=== PATIENT | female | born 2000 | race Hispanic/Latino ===

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

== ENCOUNTER 2021-07-21 02:27 | Observation (INO) | payer BC, OTHER ==
[2021-07-21 03:07] LABS: #Lymphocytes 1.5 thou/uL (1.20-3.40); #Monocytes 0.5 thou/uL (0.11-0.59); #Neutrophils 13.4 thou/uL (1.40-6.50); %Basophils 0.1 % (0.0-1.0); %Eosinophils 0.1 % (0.0-10.0); %Lymphocytes 9.7 % (21.0-51.0); %Monocytes 3.3 % (0.0-10.0); %Neutrophils 86.8 % (42.0-75.0); Hemoglobin 16.6 g/dL (12.0-16.0); Mean Corpuscular HGB CONC 33.9 g/dL (32.0-36.0); Mean Corpuscular Hemoglobin 30.8 pg (27.0-31.0); Mean Corpuscular Volume 91.1 fL (78.0-98.0); Mean Platelet Volume 9.4 fL (7.4-10.4); Platelet Count 311 thou/uL (130-400); RBC Distribution Width 12.4 % (11.5-14.5); Red Blood Cell (RBC) Count 5.39 mill/uL (4.20-5.40); White Blood Cell (WBC) Count 15.4 thou/uL (4.8-10.8)
[2021-07-21 03:22] LABS: ALT (SGPT) 325 U/L (8-55); AST (SGOT) 153 U/L (5-34); Albumin 4.4 g/dL (3.5-5.0); Alkaline Phosphatase 176 U/L (40-110); Anion Gap 20 mmol/L (10-20); BUN (Urea Nitrogen) 10 mg/dL (7.0-18.7); Bilirubin, Total 2.6 mg/dL (0.2-1.2); Calc. Creatinine Clearance 0 mL/min (70-130); Calcium 9.8 mg/dL (7.8-10.44); Carbon Dioxide 21 mmol/L (22-29); Chloride 100 mmol/L (98-107); Globulin 3.3 g/dL (2.4-3.5); Glucose 165 mg/dL (70-105); Potassium 4.2 mmol/L (3.5-5.1); Protein, Total 7.7 g/dL (6.0-8.3); Sodium 137 mmol/L (136-145)
[2021-07-21] MEDS ORDERED: Ondansetron ODT 4 MG TAB ONE (03:22)
[2021-07-21 03:36] LABS: Lipase 7904 U/L (8-78)
[2021-07-21] MEDS ORDERED: Piperacillin/Tazobactam 3.375 GM VIAL ONE (03:40)
[2021-07-21] MEDS ORDERED: Morphine 4 MG/ML VIAL ONE (03:40)
[2021-07-21] MEDS ORDERED: Ondansetron PF 4 MG/2 ML Vial ONE ×3 (03:40→10:53)
[2021-07-21] MEDS ORDERED: Ketorolac Tromethamine 30 MG/ML VIAL IVP PRN (05:54)
[2021-07-21] MEDS ORDERED: Morphine 4 MG/ML VIAL SLOW IVP PRN (05:54)
[2021-07-21] MEDS ORDERED: Ondansetron PF 4 MG/2 ML Vial IVP PRN (05:55)
[2021-07-21] MEDS ORDERED: Sodium Chloride 0.9% 1,000 ML IV SCH ×2 (06:00→07:25)
[2021-07-21] MEDS ORDERED: Scopolamine 1.5 mg/72 hour Patch TOP SCH (06:00)
[2021-07-21 07:38] LABS: SARS-CoV-2 NAA Rapid Test Not Detected (NotDetected)
[2021-07-21 09:59] LABS: BHCG - Serum Negative (NEGATIVE); Pregs Control Background? CLEAR/WHITE (CLR/WHITE); Pregs Control Bar Appear? YES (CONTROL BAR)
[2021-07-21] MEDS ORDERED: Piperacillin/Tazobactam 3.375 GM in Sodium Chloride 0.9% 100 ML IVPB SCH (10:00)
[2021-07-21] MEDS ORDERED: Iothalamate Meglumine 60% 50 ML VIAL FS ONE (10:23)
[2021-07-21] MEDS ORDERED: Bupivacaine PF 0.5% 30 ML VIAL ONE (10:23)
[2021-07-21] MEDS ORDERED: EPINEPHrine 1 MG/ML AMP ONE (10:23)
[2021-07-21] MEDS ORDERED: Sodium Chloride 0.9% 20 ML ONE (10:34)
[2021-07-21] MEDS ORDERED: Fentanyl 100 MCG/2 ML VIAL ONE ×2 (10:48→11:40)
[2021-07-21] MEDS ORDERED: Lidocaine 1% PF 5 ML VIAL ONE (10:53)
[2021-07-21] MEDS ORDERED: Ketorolac Tromethamine 30 MG/ML VIAL ONE (10:53)
[2021-07-21] MEDS ORDERED: Rocuronium Bromide 10 MG/ML (10ML VIAL) ONE (10:53)
[2021-07-21] MEDS ORDERED: Glycopyrrolate 0.2 MG/ML 5 ML SYRINGE ONE (10:53)
[2021-07-21] MEDS ORDERED: Metoclopramide HCl 10 MG/2 ML VIAL ONE (10:53)
[2021-07-21] MEDS ORDERED: PROPOFOL 200 MG/20 ML VIAL ONE (10:53)
[2021-07-21] MEDS ORDERED: Succinylcholine 200 MG/10 ml SYRINGE FS ONE (10:53)
[2021-07-21] MEDS ORDERED: Ibuprofen 600 MG TAB PO PRN (11:56)
[2021-07-21] MEDS ORDERED: Acetaminophen 500 MG TAB PO PRN (11:56)
[2021-07-21] MEDS ORDERED: traMADol HCl 50 MG TAB PO PRN (11:56)
[2021-07-21] MEDS ORDERED: Non-Formulary Medication 1 EACH PO PRN (12:06)
[2021-07-21] MEDS ORDERED: Promethazine HCl 25 MG/ML VIAL IM/IV PRN (12:15)
[2021-07-21] MEDS ORDERED: Ondansetron HCl/PF 4 MG/2 ML Vial IVP PRN (12:15)
[2021-07-21] MEDS ORDERED: Lactated Ringer's 500 ML IV SCH (21:00)
[2021-07-21] MEDS: Lactated Ringer's 1,000 ML IV SCH (21:57)
[2021-07-22] MEDS: Lactated Ringer's 1,000 ML IV SCH (01:55)
[2021-07-22 06:17] VITALS: BMI 41.0
[2021-07-22 07:08] LABS: #Monocytes 0.9 thou/uL (0.11-0.59); #Neutrophils 8.5 thou/uL (1.40-6.50); %Basophils 0.2 % (0.0-1.0); %Eosinophils 0.1 % (0.0-10.0); %Lymphocytes 17.4 % (21.0-51.0); %Monocytes 7.9 % (0.0-10.0); %Neutrophils 74.4 % (42.0-75.0); Hemoglobin 10.3 g/dL (12.0-16.0); Mean Corpuscular Volume 91.1 fL (78.0-98.0); Mean Platelet Volume 9.3 fL (7.4-10.4); Platelet Count 230 thou/uL (130-400); RBC Distribution Width 12.2 % (11.5-14.5); Red Blood Cell (RBC) Count 3.32 mill/uL (4.20-5.40); White Blood Cell (WBC) Count 11.5 thou/uL (4.8-10.8)
[2021-07-22 07:46] LABS: Lipase 1464 U/L (8-78)
[2021-07-22 07:50] LABS: ALT (SGPT) 152 U/L (8-55); AST (SGOT) 57 U/L (5-34); Albumin 3.1 g/dL (3.5-5.0); Alkaline Phosphatase 88 U/L (40-110); Anion Gap 12 mmol/L (10-20); BUN (Urea Nitrogen) 6 mg/dL (7.0-18.7); Bilirubin, Total 0.9 mg/dL (0.2-1.2); Calc. Creatinine Clearance 206 mL/min (70-130); Calcium 7.6 mg/dL (7.8-10.44); Carbon Dioxide 25 mmol/L (22-29); Chloride 102 mmol/L (98-107); Glucose 113 mg/dL (70-105); Potassium 3.6 mmol/L (3.5-5.1); Protein, Total 5.1 g/dL (6.0-8.3); Sodium 135 mmol/L (136-145)
[2021-07-22] MEDS ORDERED: Sodium Chloride 0.9% 1,000 ML IV SCH (09:30)
[2021-07-22 16:10] VITALS: BP 110/58; TEMP 99.1
== END 2021-07-22 17:30 | disposition home or self-care (01) ==
LOC: ERS 02:27 → INTOOBSV 03:43 → ONC 03:43
PROVIDERS: ADMIT Specialist; ATTEND Specialist
PROC: 0FT44ZZ Resection of Gallbladder, Percutaneous Endoscopic Approach (ICD-10-PCS; principal; 2021-07-21)
PROC: BF101ZZ Fluoroscopy of Bile Ducts using Low Osmolar Contrast (ICD-10-PCS; 2021-07-21)
DX: K80.10 Calculus of gallbladder with chronic cholecystitis without obstruction (principal); K85.10 Biliary acute pancreatitis without necrosis or infection; K83.8 Other specified diseases of biliary tract; Z20.822 Contact with and (suspected) exposure to COVID-19
CPT/HCPCS: 36415; 47532; 76705; 80053; 83690; 84703; 85025; 88304; 96376; G0378; J0171; J1610; J1885; J2270; J2405; J2543; J2704; J2765; J3010; J7050; J7120; Q0162; Q9961; S0020; U0002

== ENCOUNTER 2023-12-18 | Inpatient (IN) | payer BC | END 2023-12-23 16:37 | disposition home or self-care (01) | DRG 853 | PROVIDERS: ADMIT Specialist | PROC: 0D1B0Z4 Bypass Ileum to Cutaneous, Open Approach (ICD-10-PCS; principal; 2023-12-18) | PROC: 0W9G0ZZ Drainage of Peritoneal Cavity, Open Approach (ICD-10-PCS; 2023-12-18) | PROC: 0DTN0ZZ Resection of Sigmoid Colon, Open Approach (ICD-10-PCS; 2023-12-18) | PROC: 0DJD4ZZ Inspection of Lower Intestinal Tract, Percutaneous Endoscopic Approach (ICD-10-PCS; 2023-12-18) | PROC: 02H633Z Insertion of Infusion Device into Right Atrium, Percutaneous Approach (ICD-10-PCS; 2023-12-18) | PROC: B5181ZA Fluoroscopy of Superior Vena Cava using Low Osmolar Contrast, Guidance (ICD-10-PCS; 2023-12-18) | PROC: 0D9670Z Drainage of Stomach with Drainage Device, Via Natural or Artificial Opening (ICD-10-PCS; 2023-12-18) | PROC: 3E0G76Z Introduction of Nutritional Substance into Upper GI, Via Natural or Artificial Opening (ICD-10-PCS; 2023-12-18) | PROC: 0T9B70Z Drainage of Bladder with Drainage Device, Via Natural or Artificial Opening (ICD-10-PCS; 2023-12-18) | PROC: 3E033XZ Introduction of Vasopressor into Peripheral Vein, Percutaneous Approach (ICD-10-PCS; 2023-12-18) | PROC: 30233J1 Transfusion of Nonautologous Serum Albumin into Peripheral Vein, Percutaneous Approach (ICD-10-PCS; 2023-12-18) | PROC: 3E03329 Introduction of Other Anti-infective into Peripheral Vein, Percutaneous Approach (ICD-10-PCS; 2023-12-18) | DX: A41.50 Gram-negative sepsis, unspecified (principal); K65.1 Peritoneal abscess; K57.20 Diverticulitis of large intestine with perforation and abscess without bleeding; D62 Acute posthemorrhagic anemia; K52.9 Noninfective gastroenteritis and colitis, unspecified; Z90.49 Acquired absence of other specified parts of digestive tract; K66.8 Other specified disorders of peritoneum; E66.01 Morbid (severe) obesity due to excess calories; Z68.38 Body mass index [BMI] 38.0-38.9, adult; Z53.31 Laparoscopic surgical procedure converted to open procedure; E86.0 Dehydration ==

== ENCOUNTER 2024-02-15 08:31 | Outpatient (CLI) | payer BC ==
[2024-02-15] MEDS ORDERED: MD-Gastroview 120 ML BOT ONE (08:46)
== END 2024-02-15 08:32 | disposition home or self-care (01) ==
LOC: RAD 08:31
PROVIDERS: ATTEND Specialist
DX: Z48.815 Encounter for surgical aftercare following surgery on the digestive system (principal); Z93.3 Colostomy status
CPT/HCPCS: 74280; Q9963

== ENCOUNTER 2024-02-28 09:00 | Inpatient (IN) | payer BC ==
[2024-03-02] MEDS ORDERED: Ketorolac Tromethamine 30 MG (1 mL) VIAL ONE (10:32)
[2024-03-02] MEDS ORDERED: Rocuronium Bromide 10 MG/ML (10ML VIAL) ONE (11:09)
[2024-03-02] MEDS ORDERED: fentaNYL PF 100 MCG/2 ML SYRINGE ONE (11:11)
[2024-03-02] MEDS ORDERED: Midazolam HCl 2 mg/2 ml Vial ONE ×2 (11:11→11:29)
[2024-03-02] MEDS ORDERED: Dexmedetomidine 200 MCG/2 ML VIAL ONE (11:27)
[2024-03-02] MEDS ORDERED: fentaNYL 50 mcg/mL 1 mL Vial ONE ×2 (11:28→13:45)
[2024-03-02] MEDS ORDERED: Bupivacaine 0.25% HCL 30 ML VIAL ONE (11:29)
[2024-03-02] MEDS ORDERED: Lidocaine 2% 6 ML (Jelly) SYR ONE (12:00)
[2024-03-02] MEDS ORDERED: cefOXitin 2 GM VIAL ONE (12:04)
[2024-03-02] MEDS ORDERED: Sodium Chloride 0.9% 100 ML ONE (12:05)
[2024-03-02] MEDS ORDERED: PROPOFOL 200 MG/20 ML VIAL ONE (12:17)
[2024-03-02] MEDS ORDERED: Bupivacaine/Epinephrine 0.25% 30 ML VIAL ONE (12:17)
[2024-03-02] MEDS ORDERED: PHENYLEPHRINE-NS 100 MCG/ML 10 ML SYRINGE ONE (12:21)
[2024-03-02] MEDS ORDERED: Ondansetron PF 4 MG/2 ML Vial ONE (12:27)
[2024-03-02] MEDS ORDERED: Metoclopramide HCl 10 MG (2 mL) VIAL ONE (12:27)
[2024-03-02] MEDS ORDERED: Bacitracin Zinc Ointment 30 gm TUBE ONE (13:15)
[2024-03-02] MEDS ORDERED: SUGAMMADEX SODIUM 200 MG/2 ML VIAL ONE (13:20)
[2024-03-02] MEDS ORDERED: Ondansetron HCl/PF 4 MG/2 ML Vial IVP PRN (13:38)
[2024-03-02] MEDS ORDERED: HYDROmorphone 2 MG/ML VIAL SLOW IVP PRN (13:38)
[2024-03-02] MEDS ORDERED: Promethazine HCl 25 MG/ML VIAL IM PRN (13:38)
[2024-03-02] MEDS ORDERED: Ondansetron ODT 4 MG TAB PO PRN (14:33)
[2024-03-02] MEDS ORDERED: Morphine 2 MG/ML VIAL SLOW IVP PRN (14:33)
[2024-03-02] MEDS: Ketorolac Tromethamine 30 MG (1 mL) VIAL IVP SCH (19:37)
[2024-03-02] MEDS: D5 LR w/20 mEq KCL 1,000 ML IV SCH (19:54)
[2024-03-02] MEDS: Enoxaparin 40 MG (0.4 mL) SYRINGE SC SCH (20:55)
[2024-03-02] MEDS: Escitalopram Oxalate 10 mg Tablet PO SCH (20:55)
[2024-03-03 06:02] LABS: #Basophils Less than 0.03 10x3/uL (0.0-0.2); %Basophils 0.2 % (0.0-1.0); %Eosinophils 2.6 % (0.0-10.0); %Lymphocytes 13.7 % (21.0-51.0); %Monocytes 7.4 % (0.0-10.0); %Neutrophils 75.9 % (42.0-75.0); Hemoglobin 9.3 g/dL (12.0-16.0); Mean Corpuscular HGB CONC 33.2 g/dL (32.0-36.0); Mean Corpuscular Hemoglobin 29.5 pg (27.0-31.0); Mean Corpuscular Volume 88.9 fL (78.0-98.0); Mean Platelet Volume 11.4 fL (7.4-10.4); Platelet Count 220 10x3/uL (130-400); RBC Distribution Width 14.4 % (11.5-14.5); Red Blood Cell (RBC) Count 3.15 mill/uL (4.20-5.40)
[2024-03-03 06:16] LABS: Anion Gap 11 mmol/L (10-20); BUN (Urea Nitrogen) 30 mg/dL (7.0-18.7); Calc. Creatinine Clearance 68 mL/min (70-130); Calcium 8.5 mg/dL (7.8-10.44); Carbon Dioxide 25 mmol/L (22-29); Chloride 107 mmol/L (98-107); Estimated GFR 48; Glucose 116 mg/dL (70-105); Potassium 3.5 mmol/L (3.5-5.1); Sodium 139 mmol/L (136-145)
[2024-03-03] MEDS: Levothyroxine 150 MCG TAB PO SCH (06:43)
[2024-03-03] MEDS: Lactated Ringer's 1,000 ML IV SCH (07:53)
[2024-03-03] MEDS: Acetaminophen 500 MG TAB PO PRN (08:03)
[2024-03-03] MEDS: traMADol HCl 50 MG TAB PO PRN ×2 (08:03→17:32)
[2024-03-03 10:21] VITALS: BMI 32.1
[2024-03-03] MEDS: D5 LR w/20 mEq KCL 1,000 ML IV SCH (11:00)
[2024-03-03 12:27] LABS: #Basophils 0.03 10x3/uL (0.0-0.2); %Basophils 0.4 % (0.0-1.0); %Eosinophils 3.1 % (0.0-10.0); %Lymphocytes 18.4 % (21.0-51.0); %Monocytes 7.1 % (0.0-10.0); %Neutrophils 70.6 % (42.0-75.0); Hematocrit 25.7 % (36.0-47.0); Hemoglobin 8.4 g/dL (12.0-16.0); Mean Corpuscular HGB CONC 32.7 g/dL (32.0-36.0); Mean Corpuscular Hemoglobin 29.2 pg (27.0-31.0); Mean Corpuscular Volume 89.2 fL (78.0-98.0); Mean Platelet Volume 11.7 fL (7.4-10.4); Platelet Count 202 10x3/uL (130-400); RBC Distribution Width 14.5 % (11.5-14.5); Red Blood Cell (RBC) Count 2.88 mill/uL (4.20-5.40)
[2024-03-03 12:59] VITALS: BMI 32.1
[2024-03-04 06:00] LABS: #Basophils Less than 0.03 10x3/uL (0.0-0.2); %Basophils 0.2 % (0.0-1.0); %Eosinophils 3.7 % (0.0-10.0); %Lymphocytes 12.4 % (21.0-51.0); %Monocytes 6.6 % (0.0-10.0); %Neutrophils 76.8 % (42.0-75.0); Hematocrit 25.3 % (36.0-47.0); Hemoglobin 8.2 g/dL (12.0-16.0); Mean Corpuscular HGB CONC 32.4 g/dL (32.0-36.0); Mean Corpuscular Hemoglobin 29.4 pg (27.0-31.0); Mean Corpuscular Volume 90.7 fL (78.0-98.0); Mean Platelet Volume 11.6 fL (7.4-10.4); Platelet Count 179 10x3/uL (130-400); RBC Distribution Width 14.6 % (11.5-14.5); Red Blood Cell (RBC) Count 2.79 mill/uL (4.20-5.40)
[2024-03-04 06:25] LABS: Anion Gap 11 mmol/L (10-20); BUN (Urea Nitrogen) 16 mg/dL (7.0-18.7); Calc. Creatinine Clearance 117 mL/min (70-130); Calcium 8.1 mg/dL (7.8-10.44); Carbon Dioxide 23 mmol/L (22-29); Chloride 107 mmol/L (98-107); Estimated GFR 92; Glucose 127 mg/dL (70-105); Potassium 3.6 mmol/L (3.5-5.1); Sodium 137 mmol/L (136-145)
[2024-03-04] MEDS: Ondansetron PF 4 MG/2 ML Vial IVP PRN (09:45)
[2024-03-04] MEDS: Morphine 4 MG/ML VIAL SLOW IVP PRN (14:29)
[2024-03-05 09:21] LABS: #Basophils Less than 0.03 10x3/uL (0.0-0.2); %Basophils 0.3 % (0.0-1.0); %Eosinophils 2.9 % (0.0-10.0); %Lymphocytes 14.9 % (21.0-51.0); %Monocytes 5.4 % (0.0-10.0); %Neutrophils 76.1 % (42.0-75.0); Hematocrit 24.9 % (36.0-47.0); Mean Corpuscular HGB CONC 32.1 g/dL (32.0-36.0); Mean Corpuscular Hemoglobin 29.1 pg (27.0-31.0); Mean Corpuscular Volume 90.5 fL (78.0-98.0); Mean Platelet Volume 11.1 fL (7.4-10.4); Platelet Count 188 10x3/uL (130-400); RBC Distribution Width 14.6 % (11.5-14.5); Red Blood Cell (RBC) Count 2.75 mill/uL (4.20-5.40)
[2024-03-05 09:37] LABS: Anion Gap 11 mmol/L (10-20); BUN (Urea Nitrogen) 11 mg/dL (7.0-18.7); Calc. Creatinine Clearance 134 mL/min (70-130); Calcium 8.4 mg/dL (7.8-10.44); Carbon Dioxide 24 mmol/L (22-29); Chloride 107 mmol/L (98-107); Estimated GFR 107; Glucose 96 mg/dL (70-105); Potassium 3.3 mmol/L (3.5-5.1); Sodium 139 mmol/L (136-145)
[2024-03-05] MEDS ORDERED: Sodium Chloride 0.9% 1,000 ML IV SCH (10:30)
[2024-03-05] MEDS: Lactated Ringer's 1,000 ML IV SCH (12:55)
[2024-03-05] MEDS ORDERED: Midazolam HCl 2 mg/2 ml Vial ONE ×2 (13:18→13:48)
[2024-03-05] MEDS ORDERED: Piperacillin/Tazobactam 3.375 GM VIAL ONE (13:19)
[2024-03-05] MEDS ORDERED: Sodium Chloride 0.9% 100 ML ONE (13:19)
[2024-03-05] MEDS ORDERED: EPINEPHrine 1 MG/ML VIAL ONE (13:44)
[2024-03-05] MEDS ORDERED: Bupivacaine PF 0.5% 30 ML VIAL ONE (13:44)
[2024-03-05] MEDS ORDERED: fentaNYL PF 100 MCG/2 ML SYRINGE ONE (13:46)
[2024-03-05] MEDS ORDERED: PROPOFOL 20 ML ONE (13:47)
[2024-03-05] MEDS ORDERED: SUCCINYLCHOLINE/SOD CL,ISO/PF 200 MG/10 ML SYRINGE FS ONE (13:52)
[2024-03-05] MEDS ORDERED: Rocuronium Bromide 50 MG/5 ML VIAL ONE (13:52)
[2024-03-05] MEDS ORDERED: Dexamethasone 20 MG/5 ML VIAL ONE (14:29)
[2024-03-05] MEDS ORDERED: NEOSTIGMINE 3 MG/3 ML SYR 3 MG/3 ML SYRINGE ONE (14:52)
[2024-03-05] MEDS ORDERED: Glycopyrrolate 0.2 MG/ML 5 ML SYRINGE ONE (14:52)
[2024-03-05] MEDS ORDERED: Bacitracin Zinc Ointment 30 gm TUBE ONE (14:54)
[2024-03-05] MEDS ORDERED: Meperidine HCl/PF 25 MG (1 mL) VIAL ONE (15:12)
[2024-03-05] MEDS: Piperacillin/Tazobactam 3.375 GM in Sodium Chloride 0.9% 100 ML IVPB SCH (15:19)
[2024-03-05] MEDS ORDERED: fentaNYL 50 mcg/mL 1 mL Vial ONE (15:32)
[2024-03-05] MEDS: Potassium Chloride 20 MEQ in Lactated Ringer's 1,000 ML IV SCH (16:04)
[2024-03-05] MEDS: Ketorolac Tromethamine 30 MG (1 mL) VIAL IVP SCH (19:20)
[2024-03-06 07:00] LABS: #Basophils Less than 0.03 10x3/uL (0.0-0.2); #Eosinphils Less than 0.03 10x3/uL (0.0-0.7); %Lymphocytes 10.3 % (21.0-51.0); %Monocytes 5.6 % (0.0-10.0); %Neutrophils 83.7 % (42.0-75.0); Hematocrit 22.6 % (36.0-47.0); Hemoglobin 7.4 g/dL (12.0-16.0); Mean Corpuscular HGB CONC 32.7 g/dL (32.0-36.0); Mean Corpuscular Hemoglobin 28.8 pg (27.0-31.0); Mean Corpuscular Volume 87.9 fL (78.0-98.0); Mean Platelet Volume 11.8 fL (7.4-10.4); Platelet Count 180 10x3/uL (130-400); RBC Distribution Width 14.4 % (11.5-14.5); Red Blood Cell (RBC) Count 2.57 mill/uL (4.20-5.40)
[2024-03-06 07:27] LABS: ALT (SGPT) 49 U/L (8-55); AST (SGOT) 14 U/L (5-34); Albumin 2.1 g/dL (3.5-5.0); Alkaline Phosphatase 52 U/L (40-110); Anion Gap 13 mmol/L (10-20); BUN (Urea Nitrogen) 9 mg/dL (7.0-18.7); Bilirubin, Total 0.5 mg/dL (0.2-1.2); Calc. Creatinine Clearance 149 mL/min (70-130); Calcium 7.8 mg/dL (7.8-10.44); Carbon Dioxide 22 mmol/L (22-29); Chloride 109 mmol/L (98-107); Estimated GFR 122; Globulin 2.8 g/dL (2.4-3.5); Glucose 103 mg/dL (70-105); Potassium 3.9 mmol/L (3.5-5.1); Protein, Total 4.9 g/dL (6.0-8.3); Sodium 140 mmol/L (136-145)
[2024-03-06] MEDS ORDERED: Potassium Chloride 20 MEQ in Lactated Ringer's 1,000 ML IV SCH (08:43)
[2024-03-06] MEDS: Ferrous Sulfate 325 MG TAB PO SCH (17:38)
[2024-03-06] MEDS: Ascorbic Acid 500 mg Chewable Tablet PO SCH (19:47)
[2024-03-07 10:55] LABS: Hematocrit 25.1 % (36.0-47.0); Hemoglobin 8.4 g/dL (12.0-16.0)
[2024-03-07 11:45] VITALS: BP 106/70; TEMP 98.7
== END 2024-03-07 15:20 | disposition home or self-care (01) | DRG 330 ==
LOC: EDSTATUS 03-02 09:00 → SURG A 03-02 09:26 → SJJU 03-02 14:45
PROVIDERS: ADMIT Specialist; ATTEND Specialist
PROC: 0DBB0ZZ Excision of Ileum, Open Approach (ICD-10-PCS; principal; 2024-03-02)
PROC: 0DN84ZZ Release Small Intestine, Percutaneous Endoscopic Approach (ICD-10-PCS; 2024-03-05)
DX: Z43.2 Encounter for attention to ileostomy (principal); N17.9 Acute kidney failure, unspecified; E66.9 Obesity, unspecified; Z79.899 Other long term (current) drug therapy; Z68.32 Body mass index [BMI] 32.0-32.9, adult
CPT/HCPCS: 11042; 36415; 36416; 36430; 71045; 74019; 80048; 80053; 85014; 85018; 85025; 86850; 86900; 86901; 97139; A4649; J0171; J0665; J0694; J1100; J1650; J1885; J2175; J2250; J2270; J2405; J2543; J2704; J2765; J3010; J3480; J3490; J7120; P9016